=== PATIENT | female | born 1950 | race Caucasian/White ===

== ENCOUNTER 2022-11-16 15:35 | Outpatient (CLI) | payer MEDICARE, OTHER | END 2022-11-16 15:36 | disposition home or self-care (01) | LOC: RAD 15:35 | PROVIDERS: ATTEND Family Medicine | DX: R07.1 Chest pain on breathing (principal); J98.4 Other disorders of lung; J47.9 Bronchiectasis, uncomplicated | CPT/HCPCS: 71046 ==